=== PATIENT | male | born 1980 | race Caucasian/White ===

== ENCOUNTER 2017-03-12 09:26 | Emergency (ER) | payer SELFPAY | END 2017-03-12 10:05 | disposition home or self-care (01) | LOC: D.ER 09:26 | DX: L03.114 Cellulitis of left upper limb (principal); T63.301A Toxic effect of unspecified spider venom, accidental (unintentional), initial encounter; Y92.89 Other specified places as the place of occurrence of the external cause; F17.200 Nicotine dependence, unspecified, uncomplicated ==